=== PATIENT | female | born 1975 | race Caucasian/White ===

== ENCOUNTER 2016-06-23 12:49 | Emergency (ER) | payer MEDICAID ==
[~2016-06-23] VITALS: Ht 160 cm; Wt 73.0 kg
[~2016-06-23 12:49] MED LIST: ALBUTEROL
[2016-06-23] MEDS ORDERED: IPRATROPIUM/ALBUTEROL 0.5-3(2.5)MG/3ML NEB HHN ONE (14:00)
[2016-06-23 16:16] VITALS: BP 123/75
== END 2016-06-23 16:18 | disposition home or self-care (01) ==
LOC: ER 13:32
DX: J45.901 Unspecified asthma with (acute) exacerbation (principal); J06.9 Acute upper respiratory infection, unspecified; R03.0 Elevated blood-pressure reading, without diagnosis of hypertension; E11.9 Type 2 diabetes mellitus without complications
CPT/HCPCS: 71010; 94640; 99283; J7620

== ENCOUNTER 2016-06-24 16:04 | Emergency (ER) | payer MEDICAID ==
[~2016-06-24] VITALS: Ht 157.5 cm; Wt 72.0 kg
[2016-06-24] MEDS ORDERED: ALBUTEROL (0.083%) 2.5MG/3ML NEB HHN STA (17:40)
[2016-06-24] MEDS ORDERED: IPRATROPIUM BROMIDE (0.02%) 0.5MG/2.5ML NEB HHN STA (17:40)
[2016-06-24] MEDS ORDERED: IBUPROFEN 800MG TABLET PO ONE (17:45)
[2016-06-24 19:10] VITALS: BP 124/76
== END 2016-06-24 19:11 | disposition home or self-care (01) ==
LOC: ER 17:16
DX: J45.909 Unspecified asthma, uncomplicated (principal); E11.9 Type 2 diabetes mellitus without complications; Z79.899 Other long term (current) drug therapy
CPT/HCPCS: 99283; J7611

== ENCOUNTER 2016-07-08 12:34 | Emergency (ER) | payer MEDICAID ==
[~2016-07-08] VITALS: Ht 160 cm; Wt 76.0 kg
[2016-07-08] MEDS ORDERED: IPRATROPIUM/ALBUTEROL 0.5-3(2.5)MG/3ML NEB HHN ONE (14:00)
[2016-07-08] MEDS ORDERED: PREDNISONE 20MG TABLET PO ONE (14:00)
[2016-07-08] MEDS ORDERED: BENZONATATE 200MG CAPSULE PO ONE (16:30)
[2016-07-08] MEDS ORDERED: ALBUTEROL (0.5%) 2.5MG/0.5ML NEB HHN ONE (16:30)
[2016-07-08 16:48] LABS: HEMATOCRIT. 39.4 % (36.0-48.0); MEAN CORPUSCULAR HEMOGLOBIN 28.2 pg (28.0-32.0); MEAN CORPUSCULAR HGB CONC 33.1 g/dL (31.0-37.0); MEAN CORPUSCULAR VOLUME 85.1 fL (81.0-99.0); PLATELET 326 x1000/uL (130-400); RED BLOOD CELL COUNT 4.62 mill/uL (4.2-5.4); RED CELL DISTRIBUTION WIDTH 12.8 % (11.6-14.6); WHITE BLOOD COUNT 18.9 x1000/uL (4.5-11.0)
[2016-07-08 16:54] LABS: DIFFERENTIAL COMMENT 1
[2016-07-08 16:58] LABS: ALANINE AMINOTRANSFERASE 20 IU/L (13-61); ALBUMIN 3.6 g/dL (3.4-5.0); ANION GAP 12; CALCIUM 9.1 mg/dL (8.5-10.1); CARBON DIOXIDE 26 mEq/L (21-32); CHLORIDE 108 mEq/L (98-107); INDEX HEMOLYSI 1 (1-3); INDEX ICTERIC 1 (1-4); INDEX LIPEMIC 1 (1-3); UREA NITROGEN BLOOD 12 mg/dL (7-21); eGFR > 60 mL/min (>60)
[2016-07-08 17:19] LABS: PLATELET ESTIMATE NORMAL
[2016-07-08 18:01] VITALS: BP 111/64
== END 2016-07-08 18:26 | disposition home or self-care (01) ==
LOC: ER 13:59
DX: J45.901 Unspecified asthma with (acute) exacerbation (principal); E11.9 Type 2 diabetes mellitus without complications
CPT/HCPCS: 36415; 71010; 80053; 85025; 94640; 99285; J7512; J7620